=== PATIENT | male | born 1985 | race Caucasian/White ===

== ENCOUNTER → 2018-03-01 | Outpatient (CLI) | payer BC ==
--- NOTE | 2018-03-01 08:22 | US ---
EXAMINATION TYPE: US abdomen complete DATE OF EXAM: 03/01/2018 COMPARISON: NONE CLINICAL HISTORY: R94.5 Elevated liver function test; doesn't take medication; consumes large amounts of dairy per patient history EXAM MEASUREMENTS: Liver Length: 17.5 cm Gallbladder Wall: 0.2 cm CBD: 0.2 cm Spleen: 14.7 x 13.9 x 6.4 cm Right Kidney: 10.2 x 5.1 x 4.5 cm Left Kidney: 11.8 x 6.3 x 4.7 cm Pancreas: Obscured by bowel gas Liver: Hyperechoic as is hyperechoic to right renal cortex. Additionally there is mild diminished vi sualization of the portal triads, most commonly representing hepatic steatosis. This limits evaluatio n for underlying hepatic masses. Gallbladder: wnl Evidence for sonographic James's sign: No CBD: wnl Spleen: enlarged as > 13.0cm in 2 dimensions Right Kidney: No hydronephrosis or masses seen Left Kidney: No hydronephrosis or masses seen Upper IVC: wnl Abd Aorta: wnl IMPRESSION: 1. Findings most compatible with mild degree hepatic steatosis. Correlation with liver function tests is recommended. 2. Splenomegaly is incidentally noted.
== END | disposition home or self-care (01) ==
LOC: RADUSWWP 07:00
PROVIDERS: ATTEND Internal Medicine
DX: R94.5 Abnormal results of liver function studies (principal)
CPT/HCPCS: 76700

== ENCOUNTER → 2018-06-07 | Outpatient (CLI) | payer BC ==
--- NOTE | 2018-06-07 12:22 | US ---
EXAMINATION TYPE: US abdomen complete DATE OF EXAM: 06/07/2018 COMPARISON: 03/01/2018 CLINICAL HISTORY: Splenomegaly R16.1. follow up from prev abn us EXAM MEASUREMENTS: Liver Length: 18.8 cm Gallbladder Wall: 0.2 cm CBD: 0.4 cm Spleen: 14.3 cm Right Kidney: 10.2 x 4.2 x 6.1 cm Left Kidney: 12.4 x 5.1 x 6.1 cm Pancreas: Obscured by bowel gas Liver: hepatomegaly, somewhat heterogeneous Gallbladder: wnl Evidence for sonographic James's sign: no CBD: wnl Spleen: enlarged Right Kidney: wnl Left Kidney: wnl Upper IVC: wnl Abd Aorta: wnl, no evident aneurysm There is no ascites. IMPRESSION: Hepatosplenomegaly. Coarsened echotexture of the liver could be due to underlying hepatoc ellular disease, hepatic steatosis.
== END | disposition home or self-care (01) ==
LOC: RADUSWWP 08:13
PROVIDERS: ATTEND Internal Medicine Hematology & Oncology
DX: R16.2 Hepatomegaly with splenomegaly, not elsewhere classified (principal); R93.2 Abnormal findings on diagnostic imaging of liver and biliary tract
CPT/HCPCS: 76700

== ENCOUNTER 2020-02-24 18:48 | Observation (INO) | payer BC ==
[2020-02-24] MEDS ORDERED: SODIUM CHLORIDE 0.9% 1,000 ML IV STA ×2 (19:29→22:06)
--- NOTE | 2020-02-24 19:34 | ED ---
Abdominal Pain HPI - General Source: patient Mode of arrival: ambulatory Limitations: no limitations <Angela Hogan - Last Filed: 02/24/20 21:35> <Skyla Aparicio - Last Filed: 02/26/20 02:32> - General Chief Complaint: Abdominal Pain Stated Complaint: Abd pain Time Seen by Provider: 02/24/20 19:16 - History of Present Illness Initial Comments: 35-year-old male patient presents to the emergency department today for evaluation of periumbilical abdominal pain. Patient states the pain started around 1 PM this afternoon has been constant. States that he has had fever between 101.5 and 102F. Patient states he has had some nausea but no vomiting. States he is urinating without difficulty and having normal bowel movements. He has been able to eat and drink. Denies history of abdominal surgery. States he has had a couple of episodes of dizziness. Denies any cough, congestion, sore throat, nasal drainage. Denies any rash. Patient denies any recent chest pain, abdominal pain, back pain, numbness, tingling, weakness, hematuria, dysuria, urinary urgency, urinary frequency, headache, visual changes, or any other complaints. Patient did take ibuprofen approximately an hour ago for his fever. (Angela Hogan) - Related Data Home Medications Medication Instructions Recorded Confirmed Albuterol Inhaler [Ventolin Hfa 1 - 2 puff INHALATION RT-QID PRN 02/24/20 02/24/20 Inhaler] Loratadine [Claritin] 10 mg PO DAILY 02/24/20 02/24/20 Previous Rx's Medication Instructions Recorded Acetaminophen Tab [Tylenol Tab] 1,000 mg PO Q6HR PRN #30 tablet 02/25/20 Ibuprofen [Motrin] 600 mg PO Q8HR PRN #30 tab 02/25/20 Allergies Allergy/AdvReac Type Severity Reaction Status Date / Time No Known Allergies Allergy Verified 02/24/20 20:09 Review of Systems ROS Other: All systems not noted in ROS Statement are negative. <Angela Hogan - Last Filed: 02/24/20 21:35> ROS Other: All systems not noted in ROS Statement are negative. <Skyla Aparicio - Last Filed: 02/26/20 02:32> ROS Statement: Those systems with pertinent positive or pertinent negative responses have been documented in the HPI. Past Medical History Past Medical History: No Reported History, Asthma History of Any Multi-Drug Resistant Organisms: None Reported Past Surgical History: No Surgical Hx Reported Past Psychological History: No Psychological Hx Reported Smoking Status: Never smoker Past Alcohol Use History: None Reported Past Drug Use History: None Reported <Angela Hogan - Last Filed: 02/24/20 21:35> General Exam Limitations: no limitations General appearance: alert, in no apparent distress, other (Physical well- developed, well-nourished adult male patient in no acute distress. Vital signs upon presentation are temperature 99.6F, pulse 80, respirations 18, blood pr essure 130/83, pulse ox 99% on room air.) Eye exam: Present: normal appearance, PERRL, EOMI. Absent: scleral icterus, conjunctival injection, periorbital swelling ENT exam: Present: normal exam, normal oropharynx, mucous membranes moist Respiratory exam: Present: normal lung sounds bilaterally. Absent: respiratory distress, wheezes, rales, rhonchi, stridor Cardiovascular Exam: Present: regular rate, normal rhythm, normal heart sounds. Absent: systolic murmur, diastolic murmur, rubs, gallop, clicks GI/Abdominal exam: Present: soft, tenderness (Periumbilical), normal bowel sounds. Absent: distended, guarding, rebound, rigid Neurological exam: Present: alert Psychiatric exam: Present: normal affect, normal mood Skin exam: Present: warm, dry, intact, normal color. Absent: rash <Angela Hogan - Last Filed: 02/24/20 21:35> Course Vital Signs 02/24/20 19:10 Temperature 99.6 F Pulse Rate 80 Respiratory 18 Rate Blood Pressure 130/83 O2 Sat by Pulse 99 Oximetry Medical Decision Making - Lab Data Result diagrams: 02/24/20 19:40 02/24/20 19:40 - Radiology Data Radiology results: report reviewed, image reviewed <Angela Hogan - Last Filed: 02/24/20 21:35> - Lab Data Result diagrams: 02/25/20 09:27 02/25/20 09:27 <Skyla Aparicio - Last Filed: 02/26/20 02:32> - Medical Decision Making 35-year-old male patient presents to the emergency department today for evaluation of periumbilical abdominal pain he describes as pressure. Physical examination did reveal some. Umbilical tenderness. Patient did report fevers earlier today, he is 99.7 upon arrival. Labs reviewed and did reveal elevated white blood cell count at 15.6, elevated lactic acid at 2.4. CT abdomen and pelvis was obtained and did show evidence for acute appendicitis. Patient will be admitted to the hospital with Zosyn. He'll be clear liquids until midnight, then nothing by mouth. Dr. Crawford is excepting. Patient verbalizes understanding and agrees with this plan. (Angela Hogan) I was available for consultation in the emergency department. The history and physical exam were done by the midlevel provider. [facility] I reviewed the case with the midlevel provider and based on their presentation of the patient, I agree with the assessment, medical decision making and plan of care as documented. Chart was dictated using [employer] dictation software. Attempts were made to correct any dictation errors however some typographical errors may persist. Patient was seen during a national state of emergency due to the Covid-19 pandemic. (Skyla Aparicio) - Lab Data Lab Results 02/24/20 02/24/20 02/24/20 Range/Units 19:40 19:40 19:40 WBC 15.6 H (3.8-10.6) k/uL RBC 5.43 (4.30-5.90) m/uL Hgb 15.5 (13.0-17.5) gm/dL Hct 46.6 (39.0-53.0) % MCV 85.8 (80.0-100.0) fL MCH 28.6 (25.0-35.0) pg MCHC 33.3 (31.0-37.0) g/dL RDW 13.3 (11.5-15.5) % Plt Count 278 (150-450) k/uL Neutrophils % 80 % Lymphocytes % 12 % Monocytes % 5 % Eosinophils % 2 % Basophils % 0 % Neutrophils # 12.4 H (1.3-7.7) k/uL Lymphocytes # 1.8 (1.0-4.8) k/uL Monocytes # 0.8 (0-1.0) k/uL Eosinophils # 0.3 (0-0.7) k/uL Basophils # 0.1 (0-0.2) k/uL Sodium 137 (137-145) mmol/L Potassium 3.8 (3.5-5.1) mmol/L Chloride 103 (98-107) mmol/L Carbon Dioxide 25 (22-30) mmol/L Anion Gap 9 mmol/L BUN 15 (9-20) mg/dL Creatinine 0.89 (0.66-1.25) mg/dL Est GFR (CKD-EPI)AfAm >90 (>60 ml/min/1.73 sqM) Est GFR (CKD-EPI)NonAf >90 (>60 ml/min/1.73 sqM) Glucose 103 H (74-99) mg/dL Lactic Ac Sepsis Rflx Plasma Lactic Acid Jorge A 2.4 H* (0.7-2.0) mmol/L Calcium 10.0 (8.4-10.2) mg/dL Total Bilirubin 0.6 (0.2-1.3) mg/dL AST 34 (17-59) U/L ALT 25 (4-49) U/L Alkaline Phosphatase 65 (38-126) U/L Total Protein 8.0 (6.3-8.2) g/dL Albumin 4.9 (3.5-5.0) g/dL Amylase 45 (30-110) U/L Lipase 71 (23-300) U/L Urine Color Urine Appearance (Clear) Urine pH (5.0-8.0) Ur Specific [place] (1.001-1.035) Urine Protein (Negative) Urine Glucose (UA) (Negative) Urine Ketones (Negative) Urine Blood (Negative) Urine Nitrite (Negative) Urine Bilirubin (Negative) Urine Urobilinogen (<2.0) mg/dL Ur Leukocyte Esterase (Negative) Urine RBC (0-5) /hpf Urine WBC (0-5) /hpf Ur Squamous Epith Cells (0-4) /hpf Urine Mucus (None) /hpf Coronavirus (PCR) (Not Detected) 02/24/20 02/24/20 02/24/20 Range/Units 20:04 20:12 20:14 WBC (3.8-10.6) k/uL RBC (4.30-5.90) m/uL Hgb (13.0-17.5) gm/dL Hct (39.0-53.0) % MCV (80.0-100.0) fL MCH (25.0-35.0) pg MCHC (31.0-37.0) g/dL RDW (11.5-15.5) % Plt Count (150-450) k/uL Neutrophils % % Lymphocytes % % Monocytes % % Eosinophils % % Basophils % % Neutrophils # (1.3-7.7) k/uL Lymphocytes # (1.0-4.8) k/uL Monocytes # (0-1.0) k/uL Eosinophils # (0-0.7) k/uL Basophils # (0-0.2) k/uL Sodium (137-145) mmol/L Potassium (3.5-5.1) mmol/L Chloride (98-107) mmol/L Carbon Dioxide (22-30) mmol/L Anion Gap mmol/L BUN (9-20) mg/dL Creatinine (0.66-1.25) mg/dL Est GFR (CKD-EPI)AfAm (>60 ml/min/1.73 sqM) Est GFR (CKD-EPI)NonAf (>60 ml/min/1.73 sqM) Glucose (74-99) mg/dL Lactic Ac Sepsis Rflx Y Plasma Lactic Acid Jorge A (0.7-2.0) mmol/L Calcium (8.4-10.2) mg/dL Total Bilirubin (0.2-1.3) mg/dL AST (17-59) U/L ALT (4-49) U/L Alkaline Phosphatase (38-126) U/L Total Protein (6.3-8.2) g/dL Albumin (3.5-5.0) g/dL Amylase (30-110) U/L Lipase (23-300) U/L Urine Color Yellow Urine Appearance Clear (Clear) Urine pH 8.5 H (5.0-8.0) Ur Specific [place] 1.033 (1.001-1.035) Urine Protein 1+ H (Negative) Urine Glucose (UA) Negative (Negative) Urine Ketones Negative (Negative) Urine Blood Negative (Negative) Urine Nitrite Negative (Negative) Urine Bilirubin Negative (Negative) Urine Urobilinogen 2.0 (<2.0) mg/dL Ur Leukocyte Esterase Negative (Negative) Urine RBC 2 (0-5) /hpf Urine WBC 2 (0-5) /hpf Ur Squamous Epith Cells <1 (0-4) /hpf Urine Mucus Moderate H (None) /hpf Coronavirus (PCR) Not Detected (Not Detected) - Radiology Data CT abdomen and pelvis with contrast was obtained. Report is reviewed in its entirety. Impression by Dr. Venegas shows thickened appendix with minimal surrounding inflammation consistent with acute appendicitis. No abscess. Multilevel mild lumbar spinal stenosis. (Angela Hogan) Disposition Decision to Admit Reason: Admit from EC Decision Date: 02/24/20 Decision Time: 21:35 <Angela Hogan - Last Filed: 02/24/20 21:35> <Skyla Aparicio - Last Filed: 02/26/20 02:32> Clinical Impression: Acute appendicitis Disposition: ADMITTED IP TO THIS HOSP Condition: Serious
[2020-02-24 19:59] LABS: Basophils # (A) 0.1 k/uL (0-0.2); Basophils % (A) 0 %; Eosinophils # (A) 0.3 k/uL (0-0.7); Eosinophils % (A) 2 %; HCT 46.6 % (39.0-53.0); HGB 15.5 gm/dL (13.0-17.5); Lymphocytes # (A) 1.8 k/uL (1.0-4.8); Lymphocytes % (A) 12 %; MCH 28.6 pg (25.0-35.0); MCHC 33.3 g/dL (31.0-37.0); MCV 85.8 fL (80.0-100.0); Mean Platelet Volume 7.9; Monocytes # (A) 0.8 k/uL (0-1.0); Monocytes % (A) 5 %; Neutrophils # (A) 12.4 k/uL (1.3-7.7); Neutrophils % (A) 80 %; Platelet Count 278 k/uL (150-450); RBC 5.43 m/uL (4.30-5.90); RDW 13.3 % (11.5-15.5); WBC 15.6 k/uL (3.8-10.6)
[2020-02-24 20:12] LABS: ALT 25 U/L (4-49); AST 34 U/L (17-59); African American GFR (CKD) >90 (>60 ml/min/1.73 sqM); Albumin 4.9 g/dL (3.5-5.0); Alkaline Phosphatase 65 U/L (38-126); Amylase 45 U/L (30-110); Anion Gap 9 mmol/L; Blood Urea Nitrogen 15 mg/dL (9-20); Carbon Dioxide 25 mmol/L (22-30); Chloride 103 mmol/L (98-107); Glucose 103 mg/dL (74-99); Non-African American GFR(CKD) >90 (>60 ml/min/1.73 sqM); Potassium 3.8 mmol/L (3.5-5.1); Sodium 137 mmol/L (137-145); Total Bilirubin 0.6 mg/dL (0.2-1.3)
[2020-02-24 20:26] LABS: Appearance,Urine Clear (Clear); Bilirubin,Urine Negative (Negative); Blood,Urine Negative (Negative); Color,Urine Yellow; Glucose,Urine (UA) Negative (Negative); Ketones,Urine Negative (Negative); Leukocyte Esterase,Urine Negative (Negative); Mucus,Urine Moderate /hpf; Nitrite,Urine Negative (Negative); PH, Urine 8.5 (5.0-8.0); Protein,Urine 1+ (Negative); RBC,Urine 2 /hpf (0-5); Specific Gravity,Urine 1.033 (1.001-1.035); Squamous Epithelial Cell,Urine <1 /hpf (0-4); WBC,Urine 2 /hpf (0-5)
--- NOTE | 2020-02-24 20:48 | CT ---
EXAMINATION TYPE: CT abdomen pelvis w con DATE OF EXAM: 02/24/2020 COMPARISON: None HISTORY: RLQ pain, fever CT DLP: 1564.5 mGycm Automated exposure control for dose reduction was used. CONTRAST: Performed with IV Contrast, patient injected with 100 mL of Isovue 300. The lung bases are clear. There is no pleural effusion. Heart size is normal. There is no pericardial effusion. Liver spleen pancreas gallbladder stomach appear normal. Bile ducts are not dilated. There is no adrenal mass. Kidneys show satisfactory contrast opacification. There is no hydronephrosi s. Ureters are not dilated. There is no retroperitoneal adenopathy. Bladder distends smoothly. There is no inguinal hernia. There is no free fluid in the pelvis. There is no mesenteric edema. There is no ascites or free air. There is no sign of a bowel obstructio n. There is thickened appendix that measures 11 mm with surrounding minimal fat stranding. This is best seen on coronal image 42. Lumbar vertebra have normal spacing and alignment. Posterior elements are intact. There is no elis juvencio fracture. The bony pelvis appears intact. There is some spinal stenosis in the lower lumbar spin e due to disc bulging and developmentally small spinal canal. This is seen at levels from L2 to L5. IMPRESSION: Thickened appendix with minimal surrounding inflammation consistent with acute appendicitis. No absce ss. Multilevel mild lumbar spinal stenosis.
[2020-02-24] MEDS ORDERED: PIPERACILLIN-TAZOBACTAM 3.375 GM in SODIUM CHLORIDE 0.9% 100 ML IVPB STA (20:59)
[2020-02-24] MEDS ORDERED: NALOXONE 0.4 MG/ML 1 ML VIAL IV PRN (21:32)
[2020-02-24] MEDS ORDERED: ONDANSETRON 4 MG/2 ML VIAL IVP PRN (21:32)
[2020-02-24] MEDS ORDERED: HYDROmorphone 0.5 MG/0.5 ML SYRINGE IVP PRN (21:32)
[2020-02-24] MEDS ORDERED: SODIUM CHLORIDE 0.9% 1,000 ML IV SCH (21:45)
[2020-02-24] MEDS ORDERED: SODIUM CHLORIDE 0.9% 2,000 ML IV STA (22:06)
[2020-02-24] MEDS ORDERED: POTASSIUM CHLORIDE ER 20 MEQ TAB.ER PO STA (22:07)
[2020-02-24] MEDS ORDERED: SODIUM CHLORIDE 0.9% 1,000 ML with POTASSIUM CHLORIDE 20 MEQ IV STA ×2 (22:08)
[2020-02-24] MEDS: ACETAMINOPHEN TAB 500 MG TAB PO SCH (23:01)
[2020-02-24] MEDS: KETOROLAC 30 MG/ML 1 ML VIAL IVP SCH (23:02)
[2020-02-25] MEDS: ACETAMINOPHEN TAB 500 MG TAB PO SCH ×3 (05:35→18:07)
[2020-02-25] MEDS: KETOROLAC 30 MG/ML 1 ML VIAL IVP SCH ×3 (05:47→18:07)
[2020-02-25] MEDS: PIPERACILLIN-TAZOBACTAM 3.375 GM in SODIUM CHLORIDE 0.9% 100 ML IVPB SCH ×2 (05:47→16:24)
[2020-02-25] MEDS ORDERED: ceFAZolin 3 GM in SODIUM CHLORIDE 0.9% 100 ML IVPB ONE (09:00)
--- NOTE | 2020-02-25 09:34 | P.GSHP ---
History of Present Illness H&P Date: 02/25/20 CHIEF COMPLAINT: Right lower quadrant abdominal pain with appendicitis for over 1 day. HISTORY OF PRESENT ILLNESS: The patient is a previously healthy 35-year-old male who presents with over 1 day history of periumbilical with right lower quadrant abdominal pain that is crampy dull ache in nature. No reports of prior abdominal pain. He states the intensity of the pain is moderate. He presented with CT abdomen and pelvis consistent with dilated appendix suspicious for appendicitis hence general surgery admission. He reports having multiple young children at home. He is about to go to on a vacation in 1 week to [place]. PAST MEDICAL HISTORY: See list and reviewed. PAST SURGICAL HISTORY: See list and reviewed. CURRENT MEDICATIONS: See list and reviewed. ALLERGIES: See list and reviewed. SOCIAL HISTORY: See list and reviewed. FAMILY HISTORY: No Crohns disease and ulcerative colitis. REVIEW OF ORGAN SYSTEMS: CONSTITUTIONAL: Present fever, no chills. Denies recent weight loss. HEENT: Denies any trouble with vision, hearing or nosebleeds. No difficulty swallowing. LYMPHATIC: The patient denies any lumps and bumps around the neck. ENDOCRINE: Denies any thyroid disorders. Denies any blood sugar glucose intolerance. RESPIRATORY: Has asthma. No recent pneumonia. CARDIOVASCULAR: Denies history of chest pain with exertion. GASTROINTESTINAL: Denies regurgitation of bile at night as well as intermittent nausea. No blood in stools. GENITOURINARY: Denies any blood in urine or increased urinary frequency. ` MUSCULOSKELETAL: Denies current joint arthritis. NEUROLOGIC: Denies any numbness or tingling along the distal extremities. No se izure disorders or headaches. PSYCHIATRIC: Denies any depression or suicidal ideation. HEMATOLOGIC: Denies any abnormal bleeding or bruising. PHYSICAL EXAMINATION: GENERAL: A 35-year-old male in no acute distress. Pleasant. HEENT: No sclera icterus. Extraocular movements grossly intact. Moist buccal mucosa. Head is atraumatic, normocephalic. Hears conversational speech. No nasal drainage. NECK: Supple without lymphadenopathy. No JV distention. CHEST: Non-labored respirations and equal bilateral excursions. CARDIOVASCULAR: Regular rate and rhythm. Palpable 2+ radial pulses. ABDOMEN: Soft, tender at the right lower quadrant without guarding. MUSCULOSKELETAL: No clubbing, cyanosis or edema. NEUROLOGIC: No focal or lateralizing signs. PSYCH: Appropriate affect. Alert and oriented to person, place and time. SKIN: Well perfused. Good skin turgor. LABS: Reviewed. White blood cell count elevated over 15,000. STUDIES: CT of the abdomen and pelvis independently reviewed with findings consistent with appendicitis. ASSESSMENT: 1. Right lower quadrant pain. 2. Appendicitis 3. Leukocytosis. PLAN: 1. I have discussed benefits and risks of laparoscopic appendectomy. 2. Bilateral SCDs. 3. Antibiotics intravenous 4. Postoperative expectations described in detail. Thank you very much for allowing me to participate in the care of your patient. Past Medical History Past Medical History: No Reported History, Asthma History of Any Multi-Drug Resistant Organisms: None Reported Past Surgical History: No Surgical Hx Reported Past Anesthesia/Blood Transfusion Reactions: No Reported Reaction Past Psychological History: No Psychological Hx Reported Smoking Status: Never smoker Past Alcohol Use History: None Reported Past Drug Use History: None Reported Medications and Allergies Home Medications Medication Instructions Recorded Confirmed Type Albuterol Inhaler [Ventolin Hfa 1 - 2 puff INHALATION RT-QID PRN 02/24/20 02/24/20 History Inhaler] Loratadine [Claritin] 10 mg PO DAILY 02/24/20 02/24/20 History Allergies Allergy/AdvReac Type Severity Reaction Status Date / Time No Known Allergies Allergy Verified 02/24/20 20:09 Surgical - Exam Vital Signs Temp Pulse Resp BP Pulse Ox 99.6 F 80 18 130/83 99 02/24/20 19:10 02/24/20 19:10 02/24/20 19:10 02/24/20 19:10 02/24/20 19:10 Results - Labs 02/24/20 19:40 02/24/20 19:40 Abnormal Lab Results - Last 24 Hours (Table) 02/24/20 02/24/20 02/24/20 Range/Units 19:40 19:40 19:40 WBC 15.6 H (3.8-10.6) k/uL Neutrophils # 12.4 H (1.3-7.7) k/uL Glucose 103 H (74-99) mg/dL Plasma Lactic Acid Jorge A 2.4 H* (0.7-2.0) mmol/L Urine pH (5.0-8.0) Urine Protein (Negative) Urine Mucus (None) /hpf 02/24/20 Range/Units 20:14 WBC (3.8-10.6) k/uL Neutrophils # (1.3-7.7) k/uL Glucose (74-99) mg/dL Plasma Lactic Acid Jorge A (0.7-2.0) mmol/L Urine pH 8.5 H (5.0-8.0) Urine Protein 1+ H (Negative) Urine Mucus Moderate H (None) /hpf Diabetes panel 02/24/20 Range/Units 19:40 Sodium 137 (137-145) mmol/L Potassium 3.8 (3.5-5.1) mmol/L Chloride 103 (98-107) mmol/L Carbon Dioxide 25 (22-30) mmol/L BUN 15 (9-20) mg/dL Creatinine 0.89 (0.66-1.25) mg/dL Glucose 103 H (74-99) mg/dL Calcium 10.0 (8.4-10.2) mg/dL AST 34 (17-59) U/L ALT 25 (4-49) U/L Alkaline Phosphatase 65 (38-126) U/L Total Protein 8.0 (6.3-8.2) g/dL Albumin 4.9 (3.5-5.0) g/dL Calcium panel 02/24/20 Range/Units 19:40 Calcium 10.0 (8.4-10.2) mg/dL Albumin 4.9 (3.5-5.0) g/dL Pituitary panel 02/24/20 Range/Units 19:40 Sodium 137 (137-145) mmol/L Potassium 3.8 (3.5-5.1) mmol/L Chloride 103 (98-107) mmol/L Carbon Dioxide 25 (22-30) mmol/L BUN 15 (9-20) mg/dL Creatinine 0.89 (0.66-1.25) mg/dL Glucose 103 H (74-99) mg/dL Calcium 10.0 (8.4-10.2) mg/dL Adrenal panel 02/24/20 Range/Units 19:40 Sodium 137 (137-145) mmol/L Potassium 3.8 (3.5-5.1) mmol/L Chloride 103 (98-107) mmol/L Carbon Dioxide 25 (22-30) mmol/L BUN 15 (9-20) mg/dL Creatinine 0.89 (0.66-1.25) mg/dL Glucose 103 H (74-99) mg/dL Calcium 10.0 (8.4-10.2) mg/dL Total Bilirubin 0.6 (0.2-1.3) mg/dL AST 34 (17-59) U/L ALT 25 (4-49) U/L Alkaline Phosphatase 65 (38-126) U/L Total Protein 8.0 (6.3-8.2) g/dL Albumin 4.9 (3.5-5.0) g/dL
[2020-02-25 09:54] LABS: Basophils % (A) 0 %; Eosinophils # (A) 0.1 k/uL (0-0.7); Eosinophils % (A) 1 %; HCT 42.2 % (39.0-53.0); HGB 13.7 gm/dL (13.0-17.5); Lymphocytes # (A) 1.9 k/uL (1.0-4.8); Lymphocytes % (A) 14 %; MCH 27.8 pg (25.0-35.0); MCHC 32.4 g/dL (31.0-37.0); MCV 85.8 fL (80.0-100.0); Mean Platelet Volume 8.1; Monocytes # (A) 0.9 k/uL (0-1.0); Monocytes % (A) 7 %; Neutrophils # (A) 10.1 k/uL (1.3-7.7); Neutrophils % (A) 77 %; Platelet Count 217 k/uL (150-450); RBC 4.92 m/uL (4.30-5.90); RDW 13.4 % (11.5-15.5); WBC 13.2 k/uL (3.8-10.6)
[2020-02-25 10:19] LABS: African American GFR (CKD) >90 (>60 ml/min/1.73 sqM); Anion Gap 6 mmol/L; Blood Urea Nitrogen 14 mg/dL (9-20); Carbon Dioxide 24 mmol/L (22-30); Chloride 107 mmol/L (98-107); Glucose 105 mg/dL (74-99); Non-African American GFR(CKD) >90 (>60 ml/min/1.73 sqM); Potassium 4.1 mmol/L (3.5-5.1); Sodium 137 mmol/L (137-145)
[2020-02-25] MEDS ORDERED: HYDROmorphone (PF) 1 MG/ML ONE (10:26)
[2020-02-25] MEDS ORDERED: NEOSTIGMINE 1 MG/ML 10 ML VIAL ONE (10:26)
[2020-02-25] MEDS ORDERED: LIDOCAINE 1% INJ 10MG/ML (20 ML MDV) ONE (10:26)
[2020-02-25] MEDS ORDERED: KETOROLAC 30 MG/ML 1 ML VIAL ONE (10:26)
[2020-02-25] MEDS ORDERED: PROPOFOL 10 MG/ML 20 ML VIAL IV ONE (10:26)
[2020-02-25] MEDS ORDERED: MIDAZOLAM 2 MG/2 ML VIAL ONE (10:26)
[2020-02-25] MEDS ORDERED: ROCURONIUM BROMIDE 10 MG/ML 5 ML VIAL IV ONE (10:26)
[2020-02-25] MEDS ORDERED: fentaNYL (PF) 50 MCG/ML 2 ML AMP ONE (10:26)
[2020-02-25] MEDS ORDERED: DEXAMETHASONE SOD PHOSPHATE 10 MG/ML 1 ML VIAL ONE (10:26)
[2020-02-25] MEDS ORDERED: GLYCOPYRROLATE 0.2 MG/ML 2 ML VIAL ONE (10:26)
[2020-02-25] MEDS ORDERED: SUCCINYLCHOLINE CHLORIDE 100 MG/5 ML SYR IV ONE (10:26)
[2020-02-25] MEDS ORDERED: ONDANSETRON 4 MG/2 ML VIAL ONE (10:26)
[2020-02-25] MEDS ORDERED: LACTATED RINGERS 1,000 ML IV ONE ×2 (10:31→11:37)
[2020-02-25] MEDS ORDERED: SODIUM CHLORIDE 0.9% 100 ML with ceFAZolin 3,000 MG IV ONE ×2 (10:56)
[2020-02-25] MEDS ORDERED: BUPIVACAINE (PF) 0.25% 30 ML VIAL SQ ONE (11:03)
[2020-02-25 11:53] VITALS: RESP 16
[2020-02-25 12:34] VITALS: TEMP 97.7
[2020-02-25] MEDS ORDERED: NALOXONE 0.4 MG/ML 1 ML VIAL IV PRN (12:58)
--- NOTE | 2020-02-25 12:58 | P.OP ---
Date of Procedure: 02/25/20 Description of Procedure: SURGEON: GIANLUCA CALZADA MD TIP INSERTER: None. PREOPERATIVE DIAGNOSES: 1. Periumbilical pain 2. Acute appendicitis. 3. Asthma 4. Obesity due to excess calories, BMI 32.7 POSTOPERATIVE DIAGNOSES: 1. Periumbilical pain 2. Acute appendicitis. 3. Asthma 4. Obesity due to excess calories, BMI 32.7 5. Acute appendicitis with periappendicitis without rupture PROCEDURES PERFORMED: 1. Laparoscopic appendectomy. ANESTHESIA: General with local ESTIMATED BLOOD LOSS: 20 mL. SPECIMENS REMOVED: Appendix. COMPLICATIONS: None. Condition: stable Disposition: floor OPERATIVE FINDINGS: 1. Acute appendicitis with periappendicitis involving tip and body of appendix dilated appendix without rupture. 2. Unremarkable small bowel and terminal ileum. 3. The colon was unremarkable 4. No inguinal hernias INDICATIONS: The patient is a 35-year-old male who presents with acute appendicitis. Benefits and risks, including possibility of open technique were described at length. Informed consent was obtained. DESCRIPTION OR PROCEDURE: Patient was brought to the operating room, laid in supine position. After general induction, the abdomen was prepped and draped in standard sterile fashion. Prior to incision, a timeout protocol was confirmed with surgical team regarding patient's name including procedure to be performed. Preoperative medications were given intraoperatively. Additionally, bilateral SCDs were placed. A left upper quadrant incision was made after localizing the skin with anesthetic. A 0 degree 5 mm laparoscopic trocar entry was performed and entered into the peritoneal cavity. The abdomen was insufflated to 15 mmHg of pressure, which he tolerated well. Diagnostic laparoscopy demonstrated no injury to bowel, viscera or mesentery. A 5 mm port was placed just above the pubis. A separate 12 mm port was placed at the left lateral abdominal wall under direct visualization. The patient was placed in Trendelenburg position with the right side up. A systematic view within the abdominal cavity was started with the small bowel which was unremarkable. The base of the cecum was without inflammation. The entire appendix was dilated consistent with acute appendicitis without rupture. A 45 mm Endo MIK echelon stapler was fired using a white load. Staple line was hemostatic. The specimen was removed through the 12 mm trocar. The trocar site was reapproximated using 0 Vicryl in Gerard Blood. All instruments and pneumoperitoneum were evacuated from the abdominal cavity. Local anesthetic was infiltrated in all wounds for postop analgesia. Liquid glue was applied to the skin after reapproximating the incisions with 4-0 Monocryl as described. At the end of the procedure, needle, sponge, and instrument count was verified correct by surgical physician assistant. The patient had tolerated the procedure well, was taken to the postanesthesia care unit in stable condition.
[2020-02-25] MEDS ORDERED: ACETAMINOPHEN TAB 325 MG TAB PO SCH (12:59)
[2020-02-25] MEDS ORDERED: ACETAMINOPHEN TAB 500 MG TAB PO SCH (14:30)
[2020-02-25 15:50] VITALS: BP 132/70; PULSE 81
--- NOTE | 2020-02-26 17:18 | P.DS ---
Providers Date of admission: 02/24/20 21:53 Expected date of discharge: 02/25/20 Attending physician: Rhea Preston Consults: 02/24/20 22:03 Consult Physician Routine Consulting Provider: [facility] Consult Reason/Comments: [facility] Do you want consulting provider notified?: Yes Primary care physician: Lay Lesly - Discharge Diagnosis(es) (1) Asthma Status: Acute (2) Obesity due to excess calories Status: Acute (3) BMI 32.0-32.9,adult Status: Acute (4) Acute appendicitis Status: Acute Hospital Course: POSTOPERATIVE DIAGNOSES: 1. Periumbilical pain 2. Acute appendicitis. 3. Asthma 4. Obesity due to excess calories, BMI 32.7 5. Acute appendicitis with periappendicitis without rupture COURSE: The patient is a 35-year-old male who presented with acute appendicitis for less than 2 days he underwent uncomplicated laparoscopic appendectomy without rupture. Postoperatively, patient was tolerating diet, voiding, and pain was well controlled. Discharge instructions were reviewed prior to surgery. Procedures: PROCEDURES PERFORMED: 1. Laparoscopic appendectomy. ANESTHESIA: General with local ESTIMATED BLOOD LOSS: 20 mL. SPECIMENS REMOVED: Appendix. COMPLICATIONS: None. Condition: stable Disposition: floor OPERATIVE FINDINGS: 1. Acute appendicitis with periappendicitis involving tip and body of appendix dilated appendix without rupture. 2. Unremarkable small bowel and terminal ileum. 3. The colon was unremarkable 4. No inguinal hernias Patient Condition at Discharge: Stable Plan - Discharge Summary Discharge Rx Participant: No New Discharge Prescriptions: New Ibuprofen [Motrin] 600 mg PO Q8HR PRN #30 tab PRN Reason: Pain Acetaminophen Tab [Tylenol Tab] 1,000 mg PO Q6HR PRN #30 tablet PRN Reason: Pain Continue Loratadine [Claritin] 10 mg PO DAILY Albuterol Inhaler [Ventolin Hfa Inhaler] 1 - 2 puff INHALATION RT-QID PRN PRN Reason: Shortness Of Breath Discharge Medication List Albuterol Inhaler [Ventolin Hfa Inhaler] 1 - 2 puff INHALATION RT-QID PRN 02/24/20 [History] Loratadine [Claritin] 10 mg PO DAILY 02/24/20 [History] Acetaminophen Tab [Tylenol Tab] 1,000 mg PO Q6HR PRN #30 tablet 02/25/20 [Rx] Ibuprofen [Motrin] 600 mg PO Q8HR PRN #30 tab 02/25/20 [Rx] Follow up Appointment(s)/Referral(s): Lay Grace MD [Primary Care Provider] - 1-2 days Rhea Preston MD [STAFF PHYSICIAN] - 02/28/20 Patient Instructions/Handouts: Laparoscopic Appendectomy (DC) Activity/Diet/Wound Care/Special Instructions: No lifting over 10 pounds in 2 weeks until February 21December shower. No bath tub soaks for two weeks until March 10 Diet as tolerated. No driving while on narcotics. Use Tylenol and ibuprofen or Aleve scheduled for the next 24-48 hours for best pain relief. Use ice along incisions for the today to prevent swelling. Discharge Disposition: HOME SELF-CARE
== END 2020-02-25 18:26 | disposition home or self-care (01) ==
LOC: EC 18:48 → 4SSUR 21:53
PROVIDERS: ADMIT Surgery Plastic and Reconstructive Surgery; ATTEND Surgery Plastic and Reconstructive Surgery
DX: K35.80 Unspecified acute appendicitis (principal); R42 Dizziness and giddiness; R79.89 Other specified abnormal findings of blood chemistry; J45.909 Unspecified asthma, uncomplicated; Z68.32 Body mass index [BMI] 32.0-32.9, adult; E66.09 Other obesity due to excess calories; Z79.899 Other long term (current) drug therapy; Z20.828 Contact with and (suspected) exposure to other viral communicable diseases
CPT/HCPCS: 44970; 99285; 36415; 88304; 80053; 80048; 82150; 83605; 83690; 85025 ×2; 81001; 87040; 74177; G0378 ×2; U0003; J2543 ×2; J2250; J1100; J2710; J3480; J2405; J0690; J2001; J3010; J1885 ×2; J1170; J0330; J2704